=== PATIENT | male | born 1960 | race Caucasian/White ===

== ENCOUNTER 2017-03-05 02:47 | Emergency (ER) | payer OTHER ==
--- NOTE | 2017-03-05 03:11 | PDOC ---
History of Present Illness - General Chief Complaint: Respiratory Stated Complaint: RESPIRATORY DISTRESS Time Seen by Provider: 03/05/17 02:55 History Source: Patient - History of Present Illness Initial Comments: 03/05/17 03:10 56 year old Found at bedside by brother at 2 AM the morning. Patient Was Alert as per brother started shaking on the left side. Patient was recently diagnosed with large lung mass, has been anxious since diagnosis. Patient was in a usual state of health at 10:30 PM prior to further going to bed. pmd: Dr. Rangel tPA Exclusion Checklist 0-3hr - Time Elapsed Date last known well: 03/04/17 - Thrombolytic Therapy Candidate Is the patient eligible for Thrombolytic Therapy?: No - Exclusion Criteria 0-3hr Recent IC/spinal surgery,head trauma or stroke w/in last 3mo: Yes Hx of previous IC hemorrhage, IC neoplasm, AVM or aneurysm: Yes - Ineligibility reason(s) Reasons No tPA given: See reason(s) noted above (hemorrhagic mass) NIH Stroke Scale - Last Known Well Date/Time & Onset Date Last Known Well: 03/04/17 Time Last Known Well: 22:30 - Initial Evaluation Level of consciousness: Alert Ask patient the month and their age: Both incorrect Ask patient to open & close eyes; make fist and let go: Obeys both correctly Best gaze (horizontal eye movement): Normal Visual field testing: No visual field loss Facial paresis (Show teeth/raise eyebrows/close eyes tight): Normal symmetrical movement Motor Function: Left Arm: Some effort against gravity Motor Function: Right Arm: Normal (extends arm 90 (or 45) degrees for 10 seconds without drift Motor Function: Left Leg: Some effort against gravity Motor Function: Right Leg: Normal (extends leg 30 degrees for 5 seconds without drift) Limb Ataxia: Present in one limb Sensory(Use pinprick test arms,legs,trunk,face/side to side): Normal Best language (Describe picture, name items, read sentences): Mild to moderate aphasia Dysarthria (read several words): Mild to moderate slurring of words Extinction and Inattention: No abnormality - Total Score NIH Stroke Scale Score: 9 Past History - Past Medical History Allergies/Adverse Reactions: Allergies Allergy/AdvReac Type Severity Reaction Status Date / Time No Known Allergies Allergy Verified 03/05/17 02:55 Home Medications: Ambulatory Orders NK [No Known Home Medication] 03/05/17 Other medical history: lung mass - Psycho/Social/Smoking Cessation Hx Suicidal Ideation: No Smoking History: Never smoked Have you smoked in the past 12 months: No Information on smoking cessation initiated: No Hx Alcohol Use: No Drug/Substance Use Hx: No Review of Systems - Review of Systems Able to Perform ROS?: Yes Is the patient limited Mohawk proficient: No Constitutional: Yes: Symptoms Reported Respiratory: Yes: Shortness of Breath Neurological: Yes: Symptoms reported, Weakness *Physical Exam - Vital Signs Last Vital Signs Temp Pulse Resp BP Pulse Ox 97.4 F L 95 H 22 129/90 100 03/05/17 02:53 03/05/17 02:53 03/05/17 02:53 03/05/17 02:53 03/05/17 02:53 - Physical Exam General Appearance: Yes: Apparent Distress Respiratory/Chest: positive: Lungs Clear, Normal Breath Sounds Cardiovascular: positive: Regular Rhythm, Regular Rate Gastrointestinal/Abdominal: positive: Normal Bowel Sounds, Soft Musculoskeletal: positive: Other Extremity: positive: Pedal Edema (l>right) Integumentary: positive: Warm, Diaphoresis Neurologic: positive: Alert, Other (left sided weakness, myoclonic movement to left side. + ankle clonus) ED Treatment Course - LABORATORY CBC & Chemistry Diagram: 03/05/17 03:12 03/05/17 03:12 - RADIOLOGY Radiograph Interpretation: 03/05/17 03:55 CT lung: Large 8 cm mass occupying the left upper lobe concerning for malignancy there is enlarged left hilar lymphadenopathy. Suboptimal evaluation of the lungs due to poor inspiration and excessive respiratory motion motion. Possible 4 mm nodule in the right lower. CT head : Intraparenchymal hematoma in the right parietal- occipital lobes, having a volume approximately 25ml and surrounded by vasogenic edema. 03/05/17 07:07 Chest xray: left upper lobe mass Medical Decision Making - Critical Care Time Total Critical Care Time (minutes): 90 Critical Care Statement: The care of this patient involved high complexity decision making to prevent further life threatening deterioration of the patient 's condition and/or to evalute & treat vital organ system(s) failure or risk of failure. - Medical Decision Making 03/05/17 03:48 A: CVA P: CT chest 02/19 : out side report 03/05/17 05:29 Dr. mcdaniel paged x 3. b/p elevated. pupils sluggish, reacting 03/05/17 06:33 Multiple attempts to reach neurosurgery service with no call backs. I spoke to Dr. Rangel. recommends this patient to be admitted to hospitalist service. Will transfer for further neurosurgical service 03/05/17 07:08 Patient currently awake, alert, sluggish. patient accepted for transfer by Dr. Brooks (neurosurgery at [facility]). pending transfer to [facility], *DC/Admit/Observation/Transfer Diagnosis at time of Disposition: Hemorrhagic cerebrovascular accident (CVA) - Discharge Dispostion Disposition: TRANSFER ACUTE CARE/OTHER HOSP - Referrals Referrals: Alex Taylor MD [Primary Care Provider] -
--- NOTE | 2017-03-05 03:17 | PDOC ---
*Physical Exam - Vital Signs Last Vital Signs Temp Pulse Resp BP Pulse Ox 97.4 F L 99 H 32 H 140/97 99 03/05/17 02:53 03/05/17 04:01 03/05/17 04:01 03/05/17 04:01 03/05/17 04:01 <Marcia Streeter - Last Filed: 03/05/17 06:31> - Vital Signs Last Vital Signs Temp Pulse Resp BP Pulse Ox 97.4 F L 95 H 22 129/90 100 03/05/17 02:53 03/05/17 02:53 03/05/17 02:53 03/05/17 02:53 03/05/17 02:53 <Elijah Reid - Last Filed: 03/09/17 19:32> Heart Score/ECG Review #1 03/05/17 04:18 Vent. rate 107 bpm CA interval 128 ms QRS duration 92 ms Sinus tachycardia Inferior infarct, age undetermined Cannot rule out anterior infarct, age undetermined <Marcia Streeter - Last Filed: 03/05/17 06:31> ED Treatment Course - LABORATORY CBC & Chemistry Diagram: 03/05/17 03:12 03/05/17 03:12 - ADDITIONAL ORDERS Additional order review: Laboratory Results 03/05/17 03/05/17 03/05/17 03:12 03:12 03:12 INR 1.34 H Sodium 141 Potassium 4.0 Chloride 107 Carbon Dioxide 22 Anion Gap 12 BUN 9 Creatinine 0.8 Creat Clearance w eGFR > 60 Random Glucose 137 H Calcium 9.0 Total Bilirubin 0.7 AST 13 L ALT 11 L Alkaline Phosphatase 242 H Creatine Kinase 41 Troponin I < 0.02 Total Protein 6.9 Albumin 3.5 Triglycerides 170 H Cholesterol 165 Total LDL Cholesterol 110 H HDL Cholesterol 29 L Blood Type B NEGATIVE Antibody Screen Negative 03/05/17 03:12 RBC 5.12 MCV 82.1 MCHC 32.5 RDW 13.9 MPV 8.5 Neutrophils % 75.8 Lymphocytes % 13.7 Monocytes % 8.8 Eosinophils % 0.8 Basophils % 0.9 - Medications Given in the ED: ED Medications Discontinued Medications Generic Name Dose Route Start Last Admin Trade Name Freq PRN Reason Stop Dose Admin Levetiracetam 1,000 mg 03/05/17 03:41 03/05/17 03:44 Keppra Injection - IVPB 03/05/17 03:42 1,000 mg ONCE ONE Administration Lorazepam 1 mg 03/05/17 03:06 03/05/17 03:05 Ativan Injection - IVPUSH 03/05/17 03:07 1 mg ONCE ONE Administration Lorazepam 1 mg 03/05/17 03:37 03/05/17 03:37 Ativan Injection - IVPUSH 03/05/17 03:38 1 mg ONCE ONE Administration <Marcia Streeter - Last Filed: 03/05/17 06:31> - LABORATORY CBC & Chemistry Diagram: 03/05/17 03:12 03/05/17 03:12 <Elijah Reid - Last Filed: 03/09/17 19:32> Medical Decision Making - Medical Decision Making 03/05/17 06:31 Have attempted to call Neuro-Surgery since approximately 3 am, it is currently 6 :30 am with no response. Will put out call to [facility] for transfer for neuro-surgical evaluation. <Marcia Streeter - Last Filed: 03/05/17 06:31> - Medical Decision Making 03/05/17 03:17 agree with care from CRISTO Marrero <Elijah Reid - Last Filed: 03/09/17 19:32> *DC/Admit/Observation/Transfer <Marcia Streeter - Last Filed: 03/05/17 06:31> <Elijah Reid - Last Filed: 03/09/17 19:32> Diagnosis at time of Disposition: Hemorrhagic cerebrovascular accident (CVA) - Discharge Dispostion Disposition: TRANSFER ACUTE CARE/OTHER HOSP - Referrals Referrals: Alex Taylor MD [Primary Care Provider] -
[2017-03-05 03:20] LABS: BASO % 0.9 % (0-2.0); EOS % 0.8 % (0-4.5); HEMOGLOBIN 13.7 GM/dL (11.7-16.9); LYMPH % 13.7 % (8-40); MCH 26.6 pg (25.7-33.7); MCHC 32.5 g/dl (32.0-35.9); MEAN CELL VOLUME 82.1 fl (80-96); MEAN PLT VOLUME 8.5 fl (7.5-11.1); MONO % 8.8 % (3.8-10.2); NEUT % 75.8 % (42.8-82.8); PLATELET COUNT 215 K/MM3 (134-434); RBC 5.12 M/mm3 (4.00-5.60); RDW 13.9 % (11.9-15.9); WHITE BLOOD COUNT 6.7 K/mm3 (4.0-10.0)
[2017-03-05 03:34] LABS: INR 1.34 (0.82-1.09); PROTHROMBIN TIME (PATIENT) 14.8 SEC (9.98-11.88)
[2017-03-05] MEDS ORDERED: levETIRAcetam 500 MG/5 ML INJECTION VIAL IVPB ONE ×2 (03:41→03:48)
[2017-03-05 03:43] LABS: ALBUMIN 3.5 g/dl (3.4-5.0); ANION GAP 12 (8-16); BILIRUBIN,TOTAL 0.7 mg/dL (0.2-1.0); BLOOD UREA NITROGEN 9 mg/dL (7-18); CHLORIDE 107 mmol/L (98-107); CHOLESTEROL 165 mg/dL (50-200); CO2 22 mmol/L (21-32); CREATININE 0.8 mg/dL (0.7-1.3); GLUCOSE,RANDOM 137 mg/dL (74-106); HDL CHOLESTEROL 29 mg/dL (40-60); SGOT/AST 13 U/L (15-37); SGPT/ALT 11 U/L (12-78); SODIUM 141 mmol/L (136-145); TRIGLYCERIDES 170 mg/dL (35-160)
[2017-03-05 03:44] LABS: ALK PHOS 242 U/L (45-117); CREATINE PHOSPHOKINASE 41 IU/L (39-308); TOT PROT 6.9 g/dl (6.4-8.2)
[2017-03-05 04:07] VITALS: BMI 30.7
[2017-03-05] MEDS ORDERED: DEXAMETHASONE SOD PHOSPHATE 10 MG/1 ML VIAL IVPUSH ONE (04:28)
[2017-03-05] MEDS ORDERED: DEXAMETHASONE SOD PHOSPHATE 10 MG/1 ML VIAL ONE (04:40)
[2017-03-05] MEDS ORDERED: NICARDIPINE 25 MG in DEXTROSE 5%-WATER - 240 ML IVPB SCH (06:15)
[2017-03-05] MEDS ORDERED: niCARdipine HCL 25 MG/10 ML AMPUL IVPB ONE (06:15)
[2017-03-05 07:15] VITALS: BP 140/100; PULSE 88; TEMP 97.6
--- NOTE | 2017-03-05 09:17 | EKG ---
Test Reason : Blood Pressure : / mmHG Vent. Rate : 107 BPM Atrial Rate : 107 BPM P-R Int : 128 ms QRS Dur : 092 ms QT Int : 346 ms P-R-T Axes : 032 020 013 degrees QTc Int : 461 ms POOR DATA QUALITY, INTERPRETATION MAY BE ADVERSELY AFFECTED SINUS TACHYCARDIA INFERIOR INFARCT , AGE UNDETERMINED ABNORMAL ECG NO PREVIOUS ECGS AVAILABLE Confirmed by BEBETO SHANKS MD ([id number]) on 03/05/2017 9:17:00 AM Referred By: Confirmed By:BEBETO SHANKS MD
== END 2017-03-05 07:40 | disposition short-term general hospital (02) ==
LOC: JER 02:47
PROC: 3E033GC Introduction of Other Therapeutic Substance into Peripheral Vein, Percutaneous Approach (ICD-10-PCS; principal; 2017-03-05)
PROC: 3E033NZ Introduction of Analgesics, Hypnotics, Sedatives into Peripheral Vein, Percutaneous Approach (ICD-10-PCS; 2017-03-05)
PROC: 3E0333Z Introduction of Anti-inflammatory into Peripheral Vein, Percutaneous Approach (ICD-10-PCS; 2017-03-05)
PROC: 3E033GC Introduction of Other Therapeutic Substance into Peripheral Vein, Percutaneous Approach (ICD-10-PCS; 2017-03-05)
DX: I61.1 Nontraumatic intracerebral hemorrhage in hemisphere, cortical (principal); R91.8 Other nonspecific abnormal finding of lung field; I69.154 Hemiplegia and hemiparesis following nontraumatic intracerebral hemorrhage affecting left non-dominant side; I69.120 Aphasia following nontraumatic intracerebral hemorrhage
CPT/HCPCS: 36415; 70450-TC; 71010-TC; 72125-TC; 80053; 82465; 82550; 83605; 83718; 83721; 84478; 84484; 85025; 85610; 86850; 86900; 86901; 93005; 93010; 99285-25; J1100